=== PATIENT | male | born 1990 | race African-American/Black ===

== ENCOUNTER 2018-01-06 20:05 | Emergency (ER) | payer SELFPAY ==
--- NOTE | 2018-01-06 21:00 | ER Document Report ---
ED Medical Screen (RME) - General Chief Complaint: Foot pain, nausea, fatigue Stated Complaint: FOOT PAIN Time Seen by Provider: 01/06/18 20:52 Notes: RME DISCLOSURE I have seen this patient as part of a Rapid Medical Evaluation and, if applicable, placed any initially appropriate orders. The patient will be seen and fully evaluated, including a full history and physical exam, by a provider ( in Main ED or Fast Track) when a room becomes available. 27-year-old male here with complaints of numbness and tingling in his fingertips ongoing for the past 2 months as well as spots that have popped up on his palms and soles of his feet over the past week. He has never had these in the past. He states that his mother has the same spots and that is how they figured out she has diabetes. He has not had any fevers chills cough congestion runny nose vomiting diarrhea. I did not discuss HIV status with him since he has a friend with him in the exam room. EXAM lesions on Palms and soles that have appearance of Kaposi sarcoma lesions TRAVEL OUTSIDE OF THE [place] IN LAST 30 DAYS: No - Related Data Allergies/Adverse Reactions: No Known Allergies Allergy (Unverified 01/06/18 20:09) Past Medical History - Social History Frequency of alcohol use: Wine twice a week Drug Abuse: None Renal/ Medical History: Denies: Hx Peritoneal Dialysis Physical Exam - Vital signs Vitals: Temp Pulse Resp BP Pulse Ox 98.3 F 47 L 16 116/78 99 01/06/18 20:35 01/06/18 20:35 01/06/18 20:35 01/06/18 20:35 01/06/18 20:35 Course - Vital Signs Vital signs: Temp Pulse Resp BP Pulse Ox 98.3 F 47 L 16 116/78 99 01/06/18 20:35 01/06/18 20:35 01/06/18 20:35 01/06/18 20:35 01/06/18 20:35
--- NOTE | 2018-01-06 21:14 | ER Document Report ---
ED General - General Chief Complaint: Foot pain, nausea, fatigue Stated Complaint: FOOT PAIN Time Seen by Provider: 01/06/18 20:52 Mode of Arrival: Ambulatory Information source: Patient Notes: 27-year-old homosexual male presents with rash of hands and feet over the past 3 months associated with generalized weakness. Patient denies a history of any STDs. He denies any fevers or chills TRAVEL OUTSIDE OF THE [place] IN LAST 30 DAYS: No - HPI Onset: Other Onset/Duration: Persistent Quality of pain: Achy Severity: Mild Pain Level: 1 Associated symptoms: Weakness, Other Exacerbated by: Denies Relieved by: Denies Similar symptoms previously: No Recently seen / treated by doctor: No - Related Data Allergies/Adverse Reactions: No Known Allergies Allergy (Unverified 01/06/18 20:09) Past Medical History - Social History Smoking Status: Current Some Day Smoker Cigarette use (# per day): Yes Chew tobacco use (# tins/day): No Smoking Education Provided: No Frequency of alcohol use: Wine twice a week Drug Abuse: None Family History: Reviewed & Not Pertinent Patient has suicidal ideation: No Patient has homicidal ideation: No Renal/ Medical History: Denies: Hx Peritoneal Dialysis Review of Systems - Review of Systems Notes: REVIEW OF SYSTEMS: CONSTITUTIONAL : Denies fever, chills, or sweats. Denies recent illness. EENT: Denies eye, ear, throat, or mouth pain or symptoms. Denies nasal or sinus congestion or discharge. Denies throat, tongue, or mouth swelling or difficulty swallowing. CARDIOVASCULAR: Denies chest pain. Denies palpitations or racing or irregular heart beat. Denies ankle edema. RESPIRATORY: Denies cough, cold, or chest congestion. Denies shortness of breath, difficulty breathing, or wheezing. GASTROINTESTINAL: Denies abdominal pain or distention. Denies nausea, vomiting , or diarrhea. Denies blood in vomitus, stools, or per rectum. Denies black, tarry stools. Denies constipation. GENITOURINARY: Denies difficulty urinating, painful urination, burning, frequency, blood in urine, or discharge. MUSCULOSKELETAL: Denies back or neck pain or stiffness. Denies joint pain or swelling. SKIN: Tender rash on hands and feet HEMATOLOGIC : Denies easy bruising or bleeding. LYMPHATIC: Denies swollen, enlarged glands. NEUROLOGICAL: Denies confusion or altered mental status. Denies passing out or loss of consciousness. Denies dizziness or lightheadedness. Denies headache. Denies weakness or paralysis or loss of use of either side. Denies problems with gait or speech. Denies sensory loss, numbness, or tingling. Denies seizures. PSYCHIATRIC: Denies anxiety or stress. Denies depression, suicidal ideation, or homicidal ideation. ALL OTHER SYSTEMS REVIEWED AND NEGATIVE. Dictation was performed using [employer] voice recognition software PHYSICAL EXAMINATION: GENERAL: Well-appearing, well-nourished and in no acute distress. HEAD: Atraumatic, normocephalic. EYES: Pupils equal round and reactive to light, extraocular movements intact, sclera anicteric, conjunctiva are normal. ENT: Nares patent, oropharynx clear without exudates. Moist mucous membranes. NECK: Normal range of motion, supple without lymphadenopathy LUNGS: Breath sounds clear to auscultation bilaterally and equal. No wheezes rales or rhonchi. HEART: Regular rate and rhythm without murmurs ABDOMEN: Soft, nontender, nondistended abdomen. No guarding, no rebound. No masses appreciated. Musculoskeletal: Normal range of motion, no pitting or edema. No cyanosis. NEUROLOGICAL: Cranial nerves grossly intact. Normal speech, normal gait. Normal sensory, motor exams PSYCH: Normal mood, normal affect. SKIN: Rashes are noted to be mildly tender multiple noted on hands and feet Physical Exam - Vital signs Vitals: Temp Pulse Resp BP Pulse Ox 98.3 F 47 L 16 116/78 99 01/06/18 20:35 01/06/18 20:35 01/06/18 20:35 01/06/18 20:35 01/06/18 20:35 Course - Re-evaluation Re-evalutation: 01/06/18 23:49 Initial workup was quite benign however after my evaluation my concern is for secondary syphilis, RPR has been ordered, I was notified by lab that this will only be run in the morning and they are unable to run it at nighttime. Therefore I will discharge patient with understand that if symptoms are positive they must return for treatment. is in the room and will return for treatment as well Otherwise patient will be given follow-up with dermatology for this rashes I am unsure what other causes it may be Mild hypothyroidism is noted patient instructed to follow-up with primary care physician After performing a Medical Screening Examination, I estimate there is LOW risk for any life threatening rash. At this time the patient looks extremely well and there are no signs of systemic infection, however this may change at any time and the rash may change. I have reevaluated this patient multiple times and no significant life threatening changes are noted. The patient and I have discussed the diagnosis and risks, and we agree with discharging home with close follow-up with the understanding that symptoms and presentations can change. We also discussed returning to the Emergency Department immediately if new or worsening symptoms occur. We have discussed the symptoms which are most concerning (e.g., changing or worsening pain, fever, numbness, weakness, cool or painful digits) that necessitate immediate return. - Vital Signs Vital signs: Temp Pulse Resp BP Pulse Ox 98.3 F 47 L 16 116/78 99 01/06/18 20:35 01/06/18 20:35 01/06/18 20:35 01/06/18 20:35 01/06/18 20:35 - Laboratory Result Diagrams: 01/06/18 21:15 01/06/18 21:15 Laboratory results interpreted by me: 01/06/18 01/06/18 01/06/18 21:15 21:15 21:15 Lymphocytes % 45.2 H Carbon Dioxide 32 H TSH 5.73 H Discharge - Discharge Clinical Impression: Rash and nonspecific skin eruption Hypothyroid Qualifiers: Hypothyroidism type: unspecified Qualified Code(s): E03.9 - Hypothyroidism, unspecified Condition: Stable Disposition: HOME, SELF-CARE Instructions: Hypothyroidism ([facility]) Referrals: RANDY DOLL DO [ACTIVE STAFF] - Follow up tomorrow
[2018-01-06 21:40] LABS: ABSOLUTE EOSINOPHILS # (AUTO) 0.1 10^3/uL (0.0-0.6); ABSOLUTE LYMPHOCYTES (AUTO) 2.7 10^3/uL (0.5-4.7); ABSOLUTE MONOCYTES (AUTO) 0.4 10^3/uL (0.1-1.4); ABSOLUTE NEUT (AUTO) 2.6 10^3/uL (1.7-8.2); BASOPHILS % (AUTO) 0.5 % (0-2); EOSINOPHILS % (AUTO) 2.4 % (0-6); HEMATOCRIT 41.3 % (37.9-51.0); HEMOGLOBIN 13.8 g/dL (13.5-17.0); LYMPHOCYTES % (AUTO) 45.2 % (13-45); MEAN CORPUSCULAR HEMOGLOBIN 31.3 pg (27.0-33.4); MEAN CORPUSCULAR HGB CONC 33.5 g/dL (32.0-36.0); MEAN CORPUSCULAR VOLUME 93 fl (80-97); MONOCYTES % (AUTO) 7.5 % (3-13); PLATELET COUNT 252 10^3/uL (150-450); RED BLOOD COUNT 4.43 10^6/uL (4.35-5.55); RED CELL DISTRIBUTION WIDTH 12.6 % (11.5-14.0); SEGMENTED NEUTROPHILS % (AUTO) 44.4 % (42-78); TOTAL CELLS COUNTED % (AUTO) 100 %
[2018-01-06 21:51] LABS: ANION GAP 7 (5-19); BLOOD UREA NITROGEN 16 mg/dL (7-20); CARBON DIOXIDE 32 mmol/L (22-30); CHLORIDE 101 mmol/L (98-107); GLUCOSE 81 mg/dL (75-110); PHOSPHORUS 4.3 mg/dL (2.5-4.5); POTASSIUM 4.2 mmol/L (3.6-5.0); SODIUM 140.4 mmol/L (137-145)
[2018-01-07 00:02] VITALS: BP 113/79
[2018-01-07 11:58] LABS: RAPID PLASMA REAGIN REACTIVE 1:8 (NONREACTIVE)
== END 2018-01-07 | disposition home or self-care (01) ==
LOC: ER 20:05
DX: A53.9 Syphilis, unspecified (principal); E03.9 Hypothyroidism, unspecified; R53.1 Weakness; F17.210 Nicotine dependence, cigarettes, uncomplicated
CPT/HCPCS: 36415; 80048; 83735; 84100; 84443; 85025; 86592; 86701; 99283

== ENCOUNTER 2018-01-08 18:04 | Emergency (ER) | payer SELFPAY ==
[2018-01-08 19:41] LABS: AMORPHOUS SEDIMENT,URINE 1+ /HPF; APPEARANCE,URINE TURBID; BILIRUBIN,URINE NEGATIVE (NEGATIVE); COLOR,URINE YELLOW; GLUCOSE, URINE NEGATIVE (NEGATIVE); KETONES,URINE NEGATIVE (NEGATIVE); LEUKOCYTE ESTERASE,URINE TRACE (NEGATIVE); NITRITE,URINE NEGATIVE (NEGATIVE); PROTEIN,URINE NEGATIVE (NEGATIVE); URINE SPECIFIC GRAVITY 1.027
[2018-01-08] MEDS ORDERED: PENICILLIN G BENZATHINE 1.2 MILLION UNIT/2 ML DISP.SYRIN IM ONE (20:08)
--- NOTE | 2018-01-08 20:12 | ER Document Report ---
ED GI/ - General Chief Complaint: STD Exposure Stated Complaint: POSSIBLE INFECTION Time Seen by Provider: 01/08/18 19:34 Mode of Arrival: Ambulatory Information source: Patient Notes: Patient presented to ED for treatment of his syphilis that he was diagnosed with on his last visit on 01/06/2018. He has partner both are here for treatment. He will be tested for GC and chlamydia and UTI while he is here as these were not run the last time he was here. TRAVEL OUTSIDE OF THE [place] IN LAST 30 DAYS: No - HPI Patient complains to provider of: Other - Patient presents for treatment of his syphilis. He was seen on the for a rash that tested positive for syphilis. Timing/Duration: Better Quality of pain: No pain Severity in ED: None Pain Level: Denies Sexual history: Unprotected intercourse, Rectal penetration, STD exposure Associated symptoms: Other - Patient presented to ED for treatment of his syphilis. His rash is much improved according to the patient. He denies any other symptoms. He was not tested for GC or chlamydia on his last visit so these tests were run. Exacerbated by: Denies Relieved by: Denies Similar symptoms previously: Yes Recently seen / treated by doctor: Yes - Related Data Allergies/Adverse Reactions: No Known Allergies Allergy (Unverified 01/06/18 20:09) Past Medical History - General Information source: Patient - Social History Smoking Status: Current Some Day Smoker Cigarette use (# per day): Yes - 4- 5 cigarettes a week Chew tobacco use (# tins/day): No Smoking Education Provided: Yes - 4 minute Frequency of alcohol use: Social - Wine twice a week Drug Abuse: None Occupation: [employer] Lives with: Family - He states he lives with his Family History: Arthritis, DM, Hypertension. denies: CAD, COPD, CVA, Hyperlipidemia, Malignancy, Thyroid Disfunction Patient has suicidal ideation: No Patient has homicidal ideation: No - Past Medical History Cardiac Medical History: Reports: None Pulmonary Medical History: Reports: None EENT Medical History: Reports: None Neurological Medical History: Reports: None Endocrine Medical History: Reports: Hx Hypothyroidism Renal/ Medical History: Reports: None Malignancy Medical History: Reports None GI Medical History: Reports: None Musculoskeltal Medical History: Reports None Skin Medical History: Reports Other - Syphilis Psychiatric Medical History: Reports: None Traumatic Medical History: Reports: None Infectious Medical History: Reports: Other - Syphilis Surgical Hx: Negative Past Surgical History: Reports: None Review of Systems - Review of Systems Constitutional: No symptoms reported EENT: No symptoms reported Cardiovascular: No symptoms reported Respiratory: No symptoms reported Gastrointestinal: No symptoms reported Genitourinary: No symptoms reported Male Genitourinary: No symptoms reported Musculoskeletal: No symptoms reported Skin: Rash - Generalized rash much improved according to patient Hematologic/Lymphatic: No symptoms reported Neurological/Psychological: No symptoms reported -: Yes All other systems reviewed and negative Physical Exam - Vital signs Vitals: Temp Pulse Resp BP Pulse Ox 98.4 F 54 L 14 117/61 97 01/08/18 18:31 01/08/18 18:31 01/08/18 18:31 01/08/18 18:31 01/08/18 18:31 Interpretation: Normal - General General appearance: Appears well, Alert - HEENT Head: Normocephalic, Atraumatic Eyes: Normal Pupils: PERRL - Respiratory Respiratory status: No respiratory distress Chest status: Nontender Breath sounds: Normal Chest palpation: Normal - Cardiovascular Rhythm: Regular Heart sounds: Normal auscultation Murmur: No - Abdominal Inspection: Normal Distension: No distension Bowel sounds: Normal Tenderness: Nontender Organomegaly: No organomegaly - Back Back: Normal, Nontender - Extremities General upper extremity: Normal inspection, Nontender, Normal color, Normal ROM , Normal temperature General lower extremity: Normal inspection, Nontender, Normal color, Normal ROM , Normal temperature, Normal weight bearing. No: Tray's sign - Neurological Neuro grossly intact: Yes Cognition: Normal Orientation: AAOx4 Eastman Coma Scale Eye Opening: Spontaneous Janes Coma Scale Verbal: Oriented Janes Coma Scale Motor: Obeys Commands Janes Coma Scale Total: 15 Speech: Normal Motor strength normal: LUE, RUE, LLE, RLE Sensory: Normal - Psychological Associated symptoms: Normal affect, Normal mood - Skin Skin Temperature: Warm Skin Moisture: Dry Skin Color: Normal Skin irregularity: Rash - Generalized Course - Re-evaluation Re-evalutation: 01/09/18 02:20 Patient was treated with penicillin G 2.4 million units for his positive syphilis test from last visit. He was also tested for GC and chlamydia both of which were negative. Patient went home and called back 2 hours after he left and was informed of his test results. - Vital Signs Vital signs: Temp Pulse Resp BP Pulse Ox 97.6 F 68 16 122/77 98 01/08/18 21:42 01/08/18 21:42 01/08/18 21:42 01/08/18 21:42 01/08/18 21:42 - Laboratory Laboratory results interpreted by me: 01/08/18 19:10 Urine Urobilinogen 4.0 H Ur Leukocyte Esterase TRACE H Discharge - Discharge Clinical Impression: Syphilis Condition: Stable Disposition: HOME, SELF-CARE Instructions: Family Physicians / Practices Additional Instructions: You tested positive for syphilis on your last visit. I have given you a handout concerning syphilis treatment symptoms and how to prevent syphilis. Penicillins The antibiotic you have received is a member of the penicillin family. This is a very useful class of antibiotics. The particular type of antibiotic chosen for you was determined by the nature of your problem. Penicillins are absorbed best when taken on an empty stomach, and should be taken either a half hour before or two hours after a meal. Some newer medicines of the penicillin class are better taken with food -- if this is the case, the pharmacist will label the medicine to alert you. Penicillins usually have no side effects. However, allergy to penicillins is common. If you have had an allergic reaction to any drug of the penicillin family, you should never take any other penicillin. Notify your doctor at once if you develop hives, itching, swelling, faintness, or shortness of breath. Less serious side effects can include nausea or diarrhea. You have been tested for gonorrhea and chlamydia while you were here today. You will need to call [phone] and about 2 hours for your test results. If these are positive you will need to return for a Rocephin shot and azithromycin. You will need to follow-up with the health department for further STD testing and for monitoring of your current symptoms. You will also need to follow-up with the primary doctor follow-up with your hypothyroidism. FOLLOW-UP CARE: If you have been referred to a physician for follow-up care, call the physician s office for an appointment as you were instructed or within the next two days. If you experience worsening or a significant change in your symptoms, notify the physician immediately or return to the Emergency Department at any time for re-evaluation. Forms: Smoking Cessation Education, Return to Work
[2018-01-08 21:05] LABS: CHLAM PCR NOT DETECTED (NOT DETECT); GON PCR NOT DETECTED (NOT DETECT)
[2018-01-08 21:44] VITALS: BP 122/77
== END 2018-01-08 21:42 | disposition home or self-care (01) ==
LOC: ER 18:04
DX: A53.9 Syphilis, unspecified (principal); F17.210 Nicotine dependence, cigarettes, uncomplicated; Z71.6 Tobacco abuse counseling
CPT/HCPCS: 99406; 99283; 96372; 81001; 87491; 87591; J0561

== ENCOUNTER 2018-09-26 07:56 | Emergency (ER) | payer SELFPAY ==
[2018-09-26 08:03] VITALS: BP 105/68
[2018-09-26] MEDS ORDERED: LIDOCAINE 2% VISCOUS SOLN 20 ML UDCUP PO ONE (08:16)
[2018-09-26] MEDS ORDERED: HYDROCODONE/ACETAMINOPHEN 5-325 MG (6 TAB/ER DISP) PO PRN (08:52)
--- NOTE | 2018-09-26 08:52 | ER Document Report ---
ED General - General Chief Complaint: Mouth Problem Stated Complaint: TOOTH PAIN Time Seen by Provider: 09/26/18 08:06 Mode of Arrival: Ambulatory Information source: Patient TRAVEL OUTSIDE OF THE [place] IN LAST 30 DAYS: No - HPI Patient complains to provider of: jaw swelling Onset: Other - Pain and jaw swelling 4 days status post extraction of his left lower anterior molar. he denies and fever or chills, he denies shortness of breath or throat pain. He complains because the swelling is worsening and only got moderately better after having his teeth extracted. - Related Data Allergies/Adverse Reactions: No Known Allergies Allergy (Verified 09/26/18 08:09) Past Medical History - General Information source: Patient - Social History Smoking Status: Never Smoker Chew tobacco use (# tins/day): No Frequency of alcohol use: Social Drug Abuse: None Family History: Arthritis, DM, Hypertension. denies: CAD, COPD, CVA, Hyperlipidemia, Malignancy, Thyroid Disfunction Patient has suicidal ideation: No Patient has homicidal ideation: No Endocrine Medical History: Reports: Hx Hypothyroidism Renal/ Medical History: Denies: Hx Peritoneal Dialysis Review of Systems - Review of Systems -: Yes All other systems reviewed and negative Physical Exam - Vital signs Vitals: Temp Pulse Resp BP Pulse Ox 98.8 F 55 L 20 105/68 98 09/26/18 08:02 09/26/18 08:02 09/26/18 08:02 09/26/18 08:02 09/26/18 08:02 - General General appearance: Appears well In distress: None - HEENT Head: Normocephalic Eyes: Normal Conjunctiva: Normal Cornea: Normal Mouth/Lips: Other - post extraction base clean with marked swelling in the mandible and profound tenderness. - Respiratory Respiratory status: No respiratory distress Chest status: Nontender Breath sounds: Normal Chest palpation: Normal - Cardiovascular Rhythm: Regular Heart sounds: Normal auscultation Murmur: No - Abdominal Inspection: Normal Distension: No distension Bowel sounds: Normal Tenderness: Nontender Organomegaly: No organomegaly - Back Back: Normal, Nontender - Extremities General upper extremity: Normal inspection, Nontender, Normal color, Normal ROM , Normal temperature General lower extremity: Normal inspection, Nontender, Normal color, Normal ROM , Normal temperature, Normal weight bearing. No: Tray's sign - Neurological Neuro grossly intact: Yes Cognition: Normal Orientation: AAOx4 Burns Coma Scale Eye Opening: Spontaneous Janes Coma Scale Verbal: Oriented Janes Coma Scale Motor: Obeys Commands Janes Coma Scale Total: 15 Speech: Normal Motor strength normal: LUE, RUE, LLE, RLE Sensory: Normal - Psychological Associated symptoms: Normal affect, Normal mood Course - Re-evaluation Re-evalutation: 28 yo male with swelling in his jaw post extraction. His mouth however demonstrates no trismus, the floor of his mouth is soft. He is in no distress. Will plan to treat with antibiotic and a brief prescription for pain. - Vital Signs Vital signs: Temp Pulse Resp BP Pulse Ox 98.8 F 55 L 20 105/68 98 09/26/18 08:02 09/26/18 08:02 09/26/18 08:02 09/26/18 08:02 09/26/18 08:02 Discharge - Discharge Clinical Impression: Mandibular swelling, Status post tooth extraction Condition: Good Disposition: HOME, SELF-CARE Additional Instructions: Your seen today in the emergency department for the swelling in your jaw. You may have a slight infection in the jaw after your tooth was pulled. Take the antibiotic prescribed to you as directed. Take ibuprofen 6-800 mg every 8 hours for the next 5 days. Take the pain medication prescribed you only as needed. Return for any worsening difficulty breathing, pain in the neck, inability to open your mouth otherwise scheduled appointment with your dentist in the coming days to have them reevaluate your tooth. Prescriptions: Amox Tr/Potassium Clavulanate [Augmentin 875-125 mg Tablet] 1 tab PO BID 10 Days #20 tablet Ibuprofen 800 mg PO TID #20 tablet
== END 2018-09-26 09:05 | disposition home or self-care (01) ==
LOC: ER 07:56
DX: R22.0 Localized swelling, mass and lump, head (principal); K08.89 Other specified disorders of teeth and supporting structures; K08.409 Partial loss of teeth, unspecified cause, unspecified class
CPT/HCPCS: 99283; J3490

== ENCOUNTER 2018-10-09 20:03 | Emergency (ER) | payer SELFPAY ==
[2018-10-09 20:10] VITALS: BP 122/88
--- NOTE | 2018-10-09 22:31 | RADIOLOGY REPORT (SQ) ---
EXAM DESCRIPTION: XR FOOT 3 OR MORE VIEWS COMPLETED DATE/TME: 10/09/2018 21:49 CLINICAL HISTORY: 28 years, Male, pain COMPARISON: None. NUMBER OF VIEWS: 3 TECHNIQUE: 3 view right foot LIMITATIONS: None. FINDINGS: Negative for fracture or dislocation. Soft tissues are unremarkable IMPRESSION: Negative exam 2010 [facility] [employer]- All Rights Reserved
--- NOTE | 2018-10-09 23:23 | ER Document Report ---
ED General - General Chief Complaint: Leg Pain Stated Complaint: RIGHT LEG PAIN Time Seen by Provider: 10/09/18 21:48 Notes: Patient is a 28-year-old male without chronic medical problems, presents with 24 hours of paresthesias from his right great toe extending along the lateral aspect of his right leg all the way up to his buttock. Describes this as a sensation of the area being asleep but denies any true loss of sensation. He denies any motor weakness, difficulty walking, bowel or bladder incontinence or urinary retention. No back pain. No fever or constitutional symptoms. States that the symptoms have started spontaneously, relatively unchanged since that time. Nothing seems to improve or worsen his symptoms. No history of similar symptoms in the past. He denies any sensation of paresthesias weakness or numbness to any other location of his body. TRAVEL OUTSIDE OF THE [place] IN LAST 30 DAYS: No - Related Data Allergies/Adverse Reactions: No Known Allergies Allergy (Verified 09/26/18 08:09) Past Medical History - General Information source: Patient - Social History Smoking Status: Never Smoker Frequency of alcohol use: None Drug Abuse: None Lives with: Spouse/Significant other Family History: Arthritis, DM, Hypertension. denies: CAD, COPD, CVA, Hyperlipidemia, Malignancy, Thyroid Disfunction Patient has suicidal ideation: No Patient has homicidal ideation: No Endocrine Medical History: Reports: Hx Hypothyroidism Renal/ Medical History: Denies: Hx Peritoneal Dialysis Review of Systems - Review of Systems Notes: Constitutional: Negative for fever. HENT: Negative for sore throat. Eyes: Negative for visual changes. Cardiovascular: Negative for chest pain. Respiratory: Negative for shortness of breath. Gastrointestinal: Negative for abdominal pain, vomiting or diarrhea. Genitourinary: Negative for dysuria. Musculoskeletal: Negative for back pain. Skin: Negative for rash. Neurological: Negative for headaches, positive for paresthesias to the right foot 10 point ROS negative except as marked above and in HPI. Physical Exam - Vital signs Vitals: Pulse Resp BP Pulse Ox 52 L 16 122/88 H 100 10/09/18 20:08 10/09/18 20:08 10/09/18 20:08 10/09/18 20:08 Interpretation: Bradycardic Notes: PHYSICAL EXAMINATION: GENERAL: Sleeping soundly on initial assessment. After he wakes up he is noted to be well-appearing, well-nourished and in no acute distress. HEAD: Atraumatic, normocephalic. EYES: Pupils equal round and reactive to light, extraocular movements intact, sclera anicteric, conjunctiva are normal. ENT: nares patent, oropharynx clear without exudates. Moist mucous membranes. NECK: Normal range of motion, supple without lymphadenopathy LUNGS: Breath sounds clear to auscultation bilaterally and equal. No wheezes rales or rhonchi. HEART: Regular rate and rhythm without murmurs ABDOMEN: Soft, nontender, normoactive bowel sounds. No guarding, no rebound. No masses appreciated. EXTREMITIES: Normal range of motion, no pitting or edema. No cyanosis. Back: No midline spinal tenderness, step-offs or deformities NEUROLOGICAL: Face symmetric. Tongue protrudes midline. Extraocular motions intact. Pupils are 2 mm and equally reactive. Normal speech, normal gait. 5 out of 5 strength in both the distal and proximal upper and lower extremities bilaterally. Sensation is grossly intact throughout. Finger to nose testing normal. Pronator drift normal. PSYCH: Normal mood, normal affect. SKIN: Warm, Dry, normal turgor, no rashes or lesions noted. Course - Re-evaluation Re-evalutation: 10/09/18 23:23 Patient presents with vague neurologic complaints that do not appear consistent with an acute stroke, intracranial mass or bleed. Does not appear consistent with a peripheral neuropathy. Patient is complaining of paresthesias without loss of sensation from his great toe extending to the lateral aspect of the right lower extremity up to the buttock. He denies any true loss of sensation. He has no motor weakness on exam. He is able to ambulate without ataxia or difficulty. Walks on heels and toes without difficulty. No bowel or bladder incontinence. No urinary retention. Foot is warm and well-perfused, strong 2+ DP pulse. Negative straight leg test. Full stroke screen is negative, NIH stroke scale 0. The patient that the exact etiology of his complaint is uncertain but does not appear to be from any immediately life-threatening cause. I have advised the patient to follow-up for an outpatient MRI of the head particularly if his symptoms do persist to definitively exclude a lacunar infarction or multiple sclerosis. At this time will discharge with return precautions and follow-up recommendations. Verbal discharge instructions given a the bedside and opportunity for questions given. Medication warnings reviewed. Patient is in agreement with this plan and has verbalized understanding of return precautions and the need for primary care follow-up in the next 24-72 hours. - Vital Signs Vital signs: Temp Pulse Resp BP Pulse Ox 52 L 16 122/88 H 100 10/09/18 20:08 10/09/18 20:08 10/09/18 20:08 10/09/18 20:08 - Diagnostic Test Radiology reviewed: Image reviewed, Reports reviewed Radiology results interpreted by me: 10/09/18 23:44 Right foot x-ray: No acute fracture or dislocation. No foreign body Discharge - Discharge Clinical Impression: Right leg paresthesias Condition: Good Disposition: HOME, SELF-CARE Additional Instructions: The exact cause of your symptoms is uncertain. As we have discussed it appears unlikely to be any immediately life-threatening diagnosis. One potential consideration would be multiple sclerosis. This is unlikely however if your symptoms are not improving an MRI of your head would be appropriate to definitively exclude this diagnosis. Currently your symptoms do not seem consistent with a stroke, infection or lack of blood flow to your foot. Please take the naproxen as prescribed for the next 3 days and see if this improves her symptoms. If you are having failure to have resolution of her symptoms within the next 2-3 days I do advised that she follow-up with your primary doctor for an MRI. Prescriptions: Naproxen [Naprosyn] 500 mg PO BID #6 tablet
== END 2018-10-09 23:36 | disposition home or self-care (01) ==
LOC: ER 20:03
DX: R20.2 Paresthesia of skin (principal)
CPT/HCPCS: 99283

== ENCOUNTER 2019-03-16 19:35 | Emergency (ER) | payer SELFPAY ==
[2019-03-16 19:47] VITALS: BP 108/69
--- NOTE | 2019-03-16 20:40 | ER Document Report ---
ED Medical Screen (RME) - General Chief Complaint: Abdominal Pain Stated Complaint: STOMACH PAIN Time Seen by Provider: 03/16/19 20:35 Mode of Arrival: Ambulatory Information source: Patient TRAVEL OUTSIDE OF THE [place] IN LAST 30 DAYS: No - HPI Patient complains to provider of: UPPER ABDO PAIN Notes: 03/16/19 20:39 Patient here with complaints of upper abdominal pain. Pain is been constant and for the last 3 days. No nausea, vomiting, diarrhea. No fever. No dysuria or hematuria. No prior abdominal surgeries. Nothing makes pain better or worse. Exam Nontoxic, no distress. Lungs clear and equal throughout. Heart sounds normal. Tenderness to palpation in the epigastrium. Plan CBC, CMP, lipase, urine, ultrasound An initial examination was made on the patient as part of the triage process, and it was determined a more comprehensive evaluation was necessary. Initial labs were ordered and patient was transferred to another provider in the ED who assumed care and finished evaluation and plan. - Related Data Allergies/Adverse Reactions: No Known Allergies Allergy (Verified 03/16/19 20:35) Past Medical History Endocrine Medical History: Reports: Hx Hypothyroidism Renal/ Medical History: Denies: Hx Peritoneal Dialysis Physical Exam - Vital signs Vitals: Temp Pulse Resp BP Pulse Ox 98.2 F 72 20 108/69 99 03/16/19 19:45 03/16/19 19:45 03/16/19 19:45 03/16/19 19:45 03/16/19 19:45 Course - Vital Signs Vital signs: Temp Pulse Resp BP Pulse Ox 98.2 F 72 20 108/69 99 03/16/19 19:45 03/16/19 19:45 03/16/19 19:45 03/16/19 19:45 03/16/19 19:45
[2019-03-16 21:28] LABS: ABSOLUTE BASOPHILS # (AUTO) 0.1 10^3/uL (0.0-0.2); ABSOLUTE EOSINOPHILS # (AUTO) 0.1 10^3/uL (0.0-0.6); ABSOLUTE LYMPHOCYTES (AUTO) 2.4 10^3/uL (0.5-4.7); ABSOLUTE MONOCYTES (AUTO) 0.6 10^3/uL (0.1-1.4); ABSOLUTE NEUT (AUTO) 3.6 10^3/uL (1.7-8.2); BASOPHILS % (AUTO) 0.8 % (0-2); EOSINOPHILS % (AUTO) 2.2 % (0-6); HEMATOCRIT 40.5 % (37.9-51.0); HEMOGLOBIN 13.8 g/dL (13.5-17.0); LYMPHOCYTES % (AUTO) 35.9 % (13-45); MEAN CORPUSCULAR HEMOGLOBIN 33.1 pg (27.0-33.4); MEAN CORPUSCULAR VOLUME 97 fl (80-97); MONOCYTES % (AUTO) 8.1 % (3-13); PLATELET COUNT 248 10^3/uL (150-450); RED BLOOD COUNT 4.17 10^6/uL (4.35-5.55); TOTAL CELLS COUNTED % (AUTO) 100 %; WHITE BLOOD COUNT 6.8 10^3/uL (4.0-10.5)
[2019-03-16 21:35] LABS: APPEARANCE,URINE CLEAR; BILIRUBIN,URINE NEGATIVE (NEGATIVE); COLOR,URINE YELLOW; GLUCOSE, URINE NEGATIVE (NEGATIVE); KETONES,URINE NEGATIVE (NEGATIVE); LEUKOCYTE ESTERASE,URINE NEGATIVE (NEGATIVE); NITRITE,URINE NEGATIVE (NEGATIVE); PROTEIN,URINE NEGATIVE (NEGATIVE); URINE SPECIFIC GRAVITY 1.029
[2019-03-16 21:46] LABS: ALANINE AMINOTRANSFERASE 17 U/L (21-72); ALBUMIN 4.2 g/dL (3.5-5.0); ALKALINE PHOSPHATASE 62 U/L (38-126); ANION GAP 6 (5-19); ASPARTATE AMINO TRANSFERASE 26 U/L (17-59); BILIRUBIN,DIRECT 0.3 mg/dL (0.0-0.4); BILIRUBIN,TOTAL 1.3 mg/dL (0.2-1.3); BLOOD UREA NITROGEN 10 mg/dL (7-20); CALCIUM 9.4 mg/dL (8.4-10.2); CARBON DIOXIDE 31 mmol/L (22-30); CHLORIDE 103 mmol/L (98-107); GLUCOSE 80 mg/dL (75-110); LIPASE 116.6 U/L (23-300); POTASSIUM 4.1 mmol/L (3.6-5.0); SODIUM 140.2 mmol/L (137-145); TOTAL PROTEIN 7.2 g/dL (6.3-8.2)
== END 2019-03-16 22:30 | disposition left against medical advice (07) ==
LOC: ER 19:35
DX: Z53.21 Procedure and treatment not carried out due to patient leaving prior to being seen by health care provider (principal); R10.9 Unspecified abdominal pain; R10.10 Upper abdominal pain, unspecified
CPT/HCPCS: 36415; 80053; 81001; 83690; 85025; 99281

== ENCOUNTER 2019-06-11 08:32 | Emergency (ER) | payer SELFPAY ==
[2019-06-11 08:37] VITALS: BP 113/57
[2019-06-11] MEDS ORDERED: LIDOCAINE 1% INJ-PF (10 MG/ML) 30 ML SDV INJ ONE (09:49)
[2019-06-11] MEDS ORDERED: DIPH/PERTUSS(ACELL)/TETANUS VAC/PF 0.5 ML SYR (>=10YO) IM ONE (09:49)
--- NOTE | 2019-06-11 09:51 | ER Document Report ---
ED Medical Screen (RME) - General Chief Complaint: Laceration Stated Complaint: HAND LACERATION Time Seen by Provider: 06/11/19 09:46 TRAVEL OUTSIDE OF THE [place] IN LAST 30 DAYS: No - HPI Notes: 06/11/19 09:49 Patient is a 28-year-old male no significant past medical history who presents complaining of abrasion and laceration to his left hand/wrist status post fall prior to arrival. Patient states that he tripped on his porch at home and injured his hand on brick. Patient states that he does not have any significant bony tenderness to his hand or wrist, but does note an area that may need stitches. Denies LEE, head injury, LOC, fever, neck pain, URI, CP, SOB, Abd pain, dysuria, back pain, or rash. I have treated and performed a rapid initial assessment of this patient. A comprehensive ED assessment and evaluation of the patient, analysis of test results and completion of medical decision making process will be conducted by additional ED providers. PHYSICAL EXAMINATION: GENERAL: Well-appearing, well-nourished and in no acute distress. A&Ox4. Answers questions appropriately. LUNGS: Breath sounds clear to auscultation bilaterally and equal. No wheezes rales or rhonchi. HEART: Regular rate and rhythm without murmurs, rubs, gallops. Left wrist/hand: + skin avulsion to the hand, superficial. + 1cm irregular superficial laceration to the medial wrist. - Related Data Allergies/Adverse Reactions: No Known Allergies Allergy (Verified 06/11/19 08:34) Past Medical History Endocrine Medical History: Reports: Hx Hypothyroidism Renal/ Medical History: Denies: Hx Peritoneal Dialysis Physical Exam - Vital signs Vitals: Temp Pulse Resp BP Pulse Ox 98.1 F 58 L 16 113/57 L 97 06/11/19 08:36 06/11/19 08:36 06/11/19 08:36 06/11/19 08:36 06/11/19 08:36 Course - Vital Signs Vital signs: Temp Pulse Resp BP Pulse Ox 98.1 F 58 L 16 113/57 L 97 06/11/19 08:36 06/11/19 08:36 06/11/19 08:36 06/11/19 08:36 06/11/19 08:36
--- NOTE | 2019-06-11 10:43 | RADIOLOGY REPORT (SQ) ---
EXAM DESCRIPTION: WRIST LEFT 3 VIEWS COMPLETED DATE/TIME: 06/11/2019 10:16 am REASON FOR STUDY: fall/skin lac COMPARISON: None. NUMBER OF VIEWS: Three views. TECHNIQUE: AP, lateral, and oblique radiographic images acquired of the left wrist. LIMITATIONS: None. FINDINGS: MINERALIZATION: Normal. BONES: No acute fracture or dislocation. No worrisome bone lesions. Normal alignment. SOFT TISSUES: Soft tissue lacerations about the base of the thumb and ulna. OTHER: No other significant finding. IMPRESSION: No fracture or dislocation of the left wrist. The carpus is normally aligned. Soft tis milli lacerations without evidence of radiopaque foreign body. TECHNICAL DOCUMENTATION: JOB ID: [id number] [email or web address]- All Rights Reserved Reading location - IP/workstation name: [email or web address]
--- NOTE | 2019-06-11 10:44 | ER Document Report ---
ED Wound - General Chief Complaint: Laceration Stated Complaint: HAND LACERATION Time Seen by Provider: 06/11/19 09:46 Mode of Arrival: Ambulatory Information source: Patient, Relative TRAVEL OUTSIDE OF THE [place] IN LAST 30 DAYS: No - HPI Patient complains to provider of: Abrasion, Laceration - pt. fell earlier this am with injury to L wrist and hand. There was no LOC. Tet. is OOD - Related Data Allergies/Adverse Reactions: No Known Allergies Allergy (Verified 06/11/19 08:34) Past Medical History - Social History Smoking Status: Former Smoker Frequency of alcohol use: every weekend Drug Abuse: None Family History: Arthritis, DM, Hypertension Patient has suicidal ideation: No Patient has homicidal ideation: No Endocrine Medical History: Reports: Hx Hypothyroidism Renal/ Medical History: Denies: Hx Peritoneal Dialysis Review of Systems - Review of Systems Constitutional: No symptoms reported EENT: No symptoms reported Cardiovascular: No symptoms reported Respiratory: No symptoms reported Gastrointestinal: No symptoms reported Musculoskeletal: See HPI, Joint pain Skin: See HPI, Other - laceration Physical Exam - Vital signs Vitals: Temp Pulse Resp BP Pulse Ox 98.1 F 58 L 16 113/57 L 97 06/11/19 08:36 06/11/19 08:36 06/11/19 08:36 06/11/19 08:36 06/11/19 08:36 - General General appearance: Appears well In distress: None - Extremities Wrist: Tender - there is min TTP of the L wrist diffusely with FROM. N/V intact. There is a 1-2 cm laceration on the volar aspect of the L wrist. Flexor and extensor tendons are intact. Course - Vital Signs Vital signs: Temp Pulse Resp BP Pulse Ox 98.1 F 58 L 16 113/57 L 97 06/11/19 08:36 06/11/19 08:36 06/11/19 08:36 06/11/19 08:36 06/11/19 08:36 - Diagnostic Test Radiology reviewed: Image reviewed - neg - fx Procedures - Laceration/Wound Repair Left Volar Wrist Time completed: 10:57 Wound length (cm): 2 Wound's Depth, Shape: Linear Laceration pre-procedure: Sterile PPE donned, Sterile drapes applied, Shur-Clens applied Anesthetic type: 1% Lidocaine Volume Anesthetic (mLs): 1 Wound explored: Clean Irrigated w/ Saline (mLs): 500 Wound Debrided: Minimal Wound Repaired With: Sutures Suture Size/Type: 4:0 Number of Sutures: 3 Layer Closure?: No Post-procedure wound care: Sterile dressing applied Post-procedure NV exam normal: Yes Complications: No Discharge - Discharge Clinical Impression: Laceration of wrist Qualifiers: Encounter type: initial encounter Laterality: left Qualified Code(s): S61.512A - Laceration without foreign body of left wrist, initial encounter Condition: Stable Disposition: HOME, SELF-CARE Instructions: Antibiotic Ointment Protection ([facility]), Soap Cleansing ([facility]), Tetanus Immunization Given ([facility]), Laceration Care ([facility]) Additional Instructions: rest, sutures out in 7 days, return if worse Forms: Return to Work Referrals: MAXI DEVINE MD [ACTIVE STAFF] - Follow up as needed
== END 2019-06-11 11:19 | disposition home or self-care (01) ==
LOC: ER 08:32
DX: S61.512A Laceration without foreign body of left wrist, initial encounter (principal); W19.XXXA Unspecified fall, initial encounter; Z87.891 Personal history of nicotine dependence; Z23 Encounter for immunization
CPT/HCPCS: 99283; 90471; 73110; 90715; 12001; J3490